=== PATIENT | female | born 1985 | race Caucasian/White ===

== ENCOUNTER 2016-03-26 15:18 | Emergency (ER) | payer SELFPAY ==
[2016-03-26] MEDS ORDERED: ONDANSETRON HCL/PF 2 MG/ML VIAL IV ONE (15:37)
[2016-03-26] MEDS ORDERED: KETOROLAC TROMETHAMINE 30 MG/ML VIAL IV ONE (15:37)
[2016-03-26] MEDS ORDERED: DIATRIZOATE MEGLU/DIATRIZO SOD 30 ML BTL PO ONE (15:37)
--- NOTE | 2016-03-26 15:41 | ERNOTE ---
Abdominal HPI - General Time Seen by Provider: 03/26/16 15:23 Source: patient Exam Limitations: no limitations - Immun/Allergies/Home Medications Immunizatons: IMMUNIZATION HX Immunizations Up to Date Yes History of Influenza Vaccine No Hx Pneumococcal Vaccination More Information Required Allergies/Adverse Reactions: Allergies No Known Allergies Allergy (Verified 03/26/16 15:29) Home Medications: HOME MEDICATIONS HYDROcodone/ACETAMINOPHEN [[place] 5-325] 1 tab PO Q4H PRN #30 tab 03/26/16 [Last Taken Unknown] Ibuprofen [Motrin] 600 mg PO Q6H PRN #40 tab 03/26/16 [Last Taken Unknown] - History of Present Illness Narrative: Patient woke up yesterday morning with abdominal pain. The pain has been constant and is increasing to where it hurts to breath, cough, or walk, nausea, no vomiting. Patient started her period yesterday, her periods are regular, is not using any control Date (Duration): 03/25/16 Time (Timing): 08:00 Timing: constant, getting worse Quality: moderate, dullness Activities at Onset: none Modifying Factors - (Improves): Present: rest Modifying Factors - (Worsens): Present: coughing, movement Associated Symptoms: Present: nausea. Absent: fever/chills, vomiting, shortness of breath Prior Abdominal Problems: Present: none Prior Treatment: Absent: recently seen, currently on antibiotics Review of Systems - Review of Systems Constitutional: Absent: recent illness, fever ENT: Absent: nose congestion, sore throat Respiratory: Absent: shortness of breath, cough Cardiology: Absent: chest pain Gastrointestinal/Abdominal: Present: See HPI, nausea. Absent: vomiting Genitourinary: Present: no symptoms reported Neurological: Absent: headache - Patient's Past Medical History Patient History - Medical: No pertinent hx Patient History - Cardiac/Respiratory: Other Patient History - Cancer: Other - diagnosed with vulvar dysplasia 2014, never followed up for treament Patient History - Surgical Procedures: No surgical history Patient History - Other: None - Social History Living Situations: home Psych History: Hx of Anxiety Smoking Status: Current every day smoker Alcohol Use: occasionally Drug Use: none - Immunizations Immunizations Up to Date: Yes Hx Pneumococcal Vaccination: More Information Required to Determine History of Influenza Vaccine: No ED Progress - Results and Orders Patient's Lab Results:: I have reviewed the patient's lab results. - Vital Signs Patient's Vital Signs:: I have reviewed the patient's vital signs. Vital Signs: Vital Signs 03/26/16 15:22 Temperature 35.8 C L Pulse Rate 73 Respiratory 12 Rate Blood Pressure 131/88 O2 Sat by Pulse 100 Oximetry - CT/Ultrasound CT/Ultrasound Narrative: CT abdomenen/pelvis: normal appendix, right ovarian cyst - Progress/Reassessment Progress Note-Subjective: 03/26/16 16:19 pain better after toradol, tolerating po 03/26/16 18:56 discussed results and plan with patient and family Departure - Departure Clinical Impression: Ovarian cyst Qualifiers: Laterality: right Qualified Code(s): N83.201 - Unspecified ovarian cyst, right side Disposition: Home self-care Condition: Good Instructions: Ovarian Cyst, [id number] Additional Instructions: try to get a follow up provider [facility] as you don't have insurance you should have an ultrasound to check on the cyst in about 6-8 weeks take the ibuprofen for pain and the norco as scheduled Prescriptions: HYDROcodone/ACETAMINOPHEN [[place] 5-325] 1 tab PO Q4H PRN #30 tab PRN Reason: Pain Ibuprofen [Motrin] 600 mg PO Q6H PRN #40 tab PRN Reason: Pain
[2016-03-26] MEDS ORDERED: KETOROLAC TROMETHAMINE 30 MG/ML VIAL ONE (15:43)
[2016-03-26] MEDS ORDERED: ONDANSETRON HCL/PF 2 MG/ML VIAL ONE (15:43)
[2016-03-26] MEDS ORDERED: DIATRIZOATE MEGLU/DIATRIZO SOD 30 ML BTL ONE (15:43)
[2016-03-26 15:54] LABS: Hematocrit 40.6 % (37.0-47.0); Hemoglobin 13.3 gm/dL (12.5-16.0); Mean Cell Volume 96.9 fl (78-100); Mean Corpuscular Hemoglobin 31.7 pg (27-31); Mean Corpuscular Hgb Conc 32.8 g/dl (32-36); Mean Platelet Volume 10.8 fl (6.0-9.5); Neutrophil # 6.8 K/mm3 (1.3-6.0); Neutrophil % 74.6 % (42-75.0); Platelet Count 200 K/mm3 (150-450); Red Blood Count 4.19 M/mm3 (4.2-5.4); Red Cell Distribution Width 13.1 % (11.5-14.0); White Blood Count 9.1 K/mm3 (4.0-10.5)
[2016-03-26 15:57] LABS: Urine Bilirubin Negative (NEGATIVE); Urine Ketone Negative (NEGATIVE); Urine Nitrite Negative (NEGATIVE); Urine Protein Negative (NEGATIVE); Urine Specific Gravity 1.015 SP.GR. (1.005-1.010); Urine Urobilinogen Normal (NORMAL)
--- OUTSIDE RECORDS SUMMARY | 2016-03-26 16:02 | XMS REPORT | Continuity of Care Document ---
:1985 Author Organization [facility] ([facility]) Address [place] [address] Phone [phone] Care Team Providers Name Role Phone Provider, No-Primary Care Primary Care Provider Unavailable Source Comments This disclosure is being made pursuant to the Care Everywhere program, applicable federal and state laws, and may not contain all informaitonavailable regarding this patient.[facility] ([facility]) Active Allergies and Adverse Reactions Allergen Noted Date Severity Reactions Comments Cephalosporins Urticaria (Hives) Pheniramine Urticaria (Hives) Phenylpropanolamine Urticaria (Hives) Phenyltoloxamine Urticaria (Hives) Pyrilamine Tannate Urticaria (Hives) Current Medications Prescription Sig. Disp. 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 antepartum Currently Estimated Date of Delivery Comments Yes Social History Tobacco Use Types Packs/Day Years Used Date Current Every Day Smoker 0.5 10 Alcohol Use Drinks/Week oz/Week Comments Yes 0 Standard drinks or equivalent 0.0 social Last Filed Vital Signs Vital Sign Reading Time Taken Blood Pressure 123/65 10/27/2014 9:16 AM CDT Pulse 70 10/27/2014 9:16 AM CDT Temperature 35.2 C (95.4 F) 10/27/2014 9:16 AM CDT Respiratory Rate - - Height 1.75 m (5' 8.9") 10/27/2014 9:16 AM CDT Weight 67.4 kg (148 lb 9.4 oz) 10/27/2014 9:16 AM CDT Body Mass Index 22.01 10/27/2014 9:16 AM CDT Oxygen Saturation - - Plan of Care Health Maintenance Due Date Last Done Comments Hepatitis B Vaccine (1 of 3 - Primary Series) 1985 Tdap Vaccine 1997 Cervical Cancer Screening 2004 Lipid Disorder Screening 2004 MMR Vaccine 2004 Td Vaccine 2004 Varicella Vaccine (1 of 2 - Adult - No Evidence of 2004 Immunity) Pneumococcal Vaccine (1 of 1 - PPSV23) 2005 Influenza Vaccine: Seasonal (#1) 09/12/2015 Results from Last 3 Months Not on file
--- OUTSIDE RECORDS SUMMARY | 2016-03-26 16:02 | XMS REPORT | Continuity of Care Document ---
:1985 Author Organization [facility] [place] [address] Care Team Providers Name Role Phone Unavailable Primary Care Provider Unavailable Source Comments This disclosure is being made pursuant to the [employer] program and maynot contain all information available regarding this patient.[facility] Active Allergies and Adverse Reactions Not on File Current Medications Be aware that medications may not be up to date as of this document. Alwaysverify current medications with the patient. Not on file Active Problems Not on file Social History Tobacco Use Types Packs/Day Years Used Date Never Assessed Plan of Care Health Maintenance Due Date Last Done Comments Retired-Pertussis Vaccine Adult 2005 Retired-Tetanus Vaccine Adult 2005 Pap Smear 08/08/2007 Retired-INFLUENZA VACCINE 10/12/2014 Results from Last 3 Months Not on file
[2016-03-26 16:07] LABS: Urine Appearance Clear; Urine Bacteria None Seen; Urine Blood 10 /ul (NEGATIVE); Urine Color Yellow; Urine RBC 0-5 /hpf (0-5); Urine WBC None Seen /hpf (0-5)
[2016-03-26 16:09] LABS: Albumin * 3.9 gm/dl (3.4-5.0); Anion Gap 12.1 mmol/L (6.8-13.8); Bilirubin, Total 0.4 mg/dL (0.0-1.1); Calcium * 9.2 mg/dL (7.9-10.9); Carbon Dioxide 30.1 mmol/L (24-32.6); Potassium 4.2 mmol/L (3.4-4.6); Total Protein 7.4 gm/dL (6.2-8.2)
[2016-03-26 19:14] VITALS: BP 125/81
== END 2016-03-26 19:13 | disposition home or self-care (01) ==
LOC: ER 15:18
DX: N83.201 Unspecified ovarian cyst, right side (principal); F17.210 Nicotine dependence, cigarettes, uncomplicated